=== PATIENT | female | born 1975 | race Caucasian/White ===

== ENCOUNTER 2020-04-01 08:41 | Day surgery (SDC) | payer OTHER ==
[2020-03-31 09:09] VITALS: BMI 29.0
[2020-04-01] MEDS ORDERED: MIDAZOLAM HCL 2 MG/2 ML SINGLE DOSE VIAL ONE (10:55)
[2020-04-01] MEDS ORDERED: PROPOFOL 20 ML ONE (10:55)
[2020-04-01] MEDS ORDERED: KETOROLAC TROMETHAMINE 30 MG/1 ML VIAL ONE (11:07)
[2020-04-01] MEDS ORDERED: DEXAMETHASONE SOD PHOSPHATE 4 MG/1 ML VIAL ONE (11:07)
[2020-04-01] MEDS ORDERED: GUM MASTIC/STORAX/MSAL/ALCOHOL 1 DRP DROPSBTL MC ONE (11:07)
[2020-04-01] MEDS ORDERED: ONDANSETRON 4 MG/2 ML VIAL ONE (11:07)
[2020-04-01] MEDS ORDERED: LIDOCAINE HCL 2% (50ML VIAL) INF ONE (11:19)
[2020-04-01 11:54] VITALS: TEMP 97.9
[2020-04-01 12:15] VITALS: BP 102/61; PULSE 66
== END 2020-04-01 12:20 | disposition home or self-care (01) ==
LOC: FASU 08:41
PROVIDERS: ATTEND Orthopaedic Surgery Hand Surgery
PROC: 0LN80ZZ Release Left Hand Tendon, Open Approach (ICD-10-PCS; principal; 2020-04-01 11:23)
PROC: 0LB80ZZ Excision of Left Hand Tendon, Open Approach (ICD-10-PCS; 2020-04-01 11:23)
DX: M65.332 Trigger finger, left middle finger (principal); M67.441 Ganglion, right hand
CPT/HCPCS: 88307-TC